=== PATIENT | male | born 1960 | race Caucasian/White ===

== ENCOUNTER 2018-12-29 09:00 | Outpatient (RCR) | payer OTHER, SELFPAY ==
--- NOTE | 2018-12-29 10:08 | BH.COMM ---
Communication Note - Communication with Client Communication Note: Completed intake paperwork with client today. Completed the Tillman Suicide Severity Scale (CSSR-S) Lifetime Recent to assess for suicidal risk. Client denies any history of suicidal ideations or attempts. 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 Client denies any current suicidal thoughts, intention and plan. Per the CSSR-S client has a low risk for suicide. Client feels able to maintain safety, agreeable to call 911 or go to nearest emergency room if feels unable to maintain safety.
--- NOTE | 2018-12-29 10:18 | BH.SGPN.GN ---
Behaviors/Verbalizations/Mental Status: []Client alert and oriented, neatly dressed and groomed. Eye contact good. Motor activity appropriate. Speech within normal limits. Affect congruent, mood euthymic. Thoughts linear, logical, no signs of hallucinations or delusions. Client Response/Progress/Benefit: []Client active participant AEB client providing input throughout session, engaged in group activity and listened attentively to peers. Client reported ?if you can adapt to changes in life you become stronger.? Client stated resilience is needed to maintain mental stability and lack of resilience can cause a person to be closed-minded. Group discussed connections between activity and barriers/supports to development of a resilient lifestyle. Client agreed with peers that one can learn to become more resilient throughout life. Client benefitted from brainstorming benefits of being resilient which included: stronger than before, improving ability to cope, builds confidence and self-esteem, and being open-minded. Client?s first day in IOP. Will continue IOP tx to prevent decompensation and improve daily functioning.
--- NOTE | 2018-12-29 11:20 | BH.SGPN.GN ---
Behaviors/Verbalizations/Mental Status: []Client alert and oriented, casually dressed and groomed. Eye contact good. Motor activity appropriate. Speech within normal limits. Affect congruent, mood euthymic. Thoughts linear, logical, no signs of hallucinations or delusions. Client Response/Progress/Benefit: []Client responded well to session, providing input during discussion and listening attentively to peers. Client engaged in the group activity as shown by client working cooperatively with others and providing ideas to group. Client stated the group have hope and being optimistic was integral for the group to be successful during activity. Worked with group to identify how the group utilized all of the resiliency factors to help them overcome a challenge that initially seemed impossible. Client reported he wants to work on the resiliency factor of accepting that change is a part of living. Client seemed to benefit from identifying what resiliency factor he wants to improve to increase personal resilience. Client to continue IOP stabilize moods, increase healthy coping skills and prevent decompensation. Narrative Note: []
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
--- NOTE | 2018-12-29 13:48 | BH.DR.ITP ---
Initial Treatment Plan - Patient Information Visit Information: ADMISSION DATE: EXPECTED LOS: 4-6 weeks - Problems/Symptoms Problem #1:: Depression Symptom:: sadness, isolation, decreased concentration, hopelessness Problem #2:: mixed episode Symptom:: Irritability, impulsivity, decreased need for sleep
--- NOTE | 2018-12-29 14:46 | BH.NOTE ---
BH: Inpatient Note - Notes Behavioral Health Inpatient Note: Per written order from Dr. Villar, the following prescription was called into [facility] pharmacy in [place], [place]: Latuda 20mg PO daily at dinner with food Written lab requisition for CMP, TSH, and Vitamin D provided to client. List of in-network Neurologists ([facility]) provided to client at the request of Dr. Villar. Elvira Mccormack, MSN, RN
--- NOTE | 2018-12-29 15:39 | BH.COMM ---
Communication Note - Communication with Client Communication Note: Due to starting new medications and change in personality over the past year psychiatrist recommended that all guns be removed from the home. Pt was agreeable. SOFÍA signed for . Called and informed and she is agreeable to help him follow through with this. Pt did not verbalize any desire to hurt self or others.
--- NOTE | 2018-12-30 09:10 | BH.SGPN.GN ---
Behaviors/Verbalizations/Mental Status: [] Eye contact is good. Motor activity is appropriate. Appearance is casual. Speech is Appropriate. Mood is euthymic. Affect is full. Thoughts are linear and logical. No evidence of psychosis. Reviewed daily check in sheet and no reports of suicidal ideations or intent Client Response/Progress/Benefit: [] Pt participated at times during the group discussion. Emotion for today is anxious. Discussed his first day in IOP yesterday which he described as helpful. Reports being motivated and encouraged to work on his mental health. States I want to make changes. Check-in was brief. Attentive during rest of group. No progress noted. Benefited from group support and encouragement. Will continue in IOP to prevent decompensation, stabilize mood, and increase healthy coping skills and communication. Narrative Note: []
--- NOTE | 2018-12-30 10:10 | BH.SGPN.GN ---
Behaviors/Verbalizations/Mental Status: []Client alert and oriented, casually dressed and groomed. Eye contact good. Motor activity appropriate. Speech within normal limits. Affect full, mood euthymic. Thoughts linear, logical, no signs of hallucinations or delusions. Client Response/Progress/Benefit: []Client active participant as shown by client?s contribution to discussion and engagement in activity. Client agreed with peers that self-care is important because ?there?s nothing to give without self-care.? Client shared self-care is not selfish because it is healthy. Client participated in the discussion of the common myths about self-care including self-care is selfish, self-indulgent, take too much time, and always fun. Group gave examples of self-care activities such as setting boundaries, taking medication, going to therapy, and admitting one needs help. Client engaged in activity and able to connect how sometimes to make self-care a priority, a person must set boundaries in other areas of their lives. Client seemed to benefit from increased awareness of the importance of self-care. Client?s second day of IOP. Will continue tx to prevent decompensation in functioning and improve emotional regulation skills.
--- NOTE | 2018-12-30 11:15 | BH.SGPN.GN ---
Behaviors/Verbalizations/Mental Status: [Client alert and oriented, casually dressed and appropriately groomed. Eye contact good, at times intense. Motor activity appropriate. Speech within normal limits, at times rambling. Affect congruent, mood anxious, depressed. Thoughts linear, logical, no signs of hallucinations or delusions. ] Client Response/Progress/Benefit: [Pt responded well to session, actively listening and willing participant in both discussion and worksheet activity. Worked with the group to further process the activity and discussion on the importance of self-care in management mental health and preventing burnout. Asking questions related to topic throughout. Pt engaged in the discussion and self-assessment of the different areas of self-care. Pt reports connecting with discussion on the mental health effects of not making self-care a priority, though struggled to identify areas in which he would benefit from improving his own personal self-care. With assistance from therapist pt set a goal to improve in the area of emotion self-care by continuing to use self-talk and taking breaks before responding to prevent becoming angry. Pt appeared to benefit from increasing awareness of how he can improve self-care balance. Pt progress noted in ability to identify impact current lack of self-care activities has had on mental health and relationships with others. Recommended continued IOP to continue to continue to promote gains, improve self-care skills, and prevent decompensation.] Narrative Note: []
--- NOTE | 2018-12-31 10:18 | BH.SGPN.GN ---
Behaviors/Verbalizations/Mental Status: [Client alert and oriented, casual dress, hygiene tended to. Eye contact good. Motor activity appropriate. Speech within normal limits. Affect congruent, mood euthymic and anxious. Thoughts linear, logical, no signs of hallucinations or delusions. ] Client Response/Progress/Benefit: [Pt receptive of session, engaged throughout. He did well to work with the group to reflect on the quote and discussed the ways in which perspective can impact mental health and ability to make personal progress in life. Pt indicated that ?we look for what we want to see, but are we seeing things that make our emotions better??. Expressed that a positive perspective can reduce use negative thoughts and improve motivation. He noted that challenging his perspective has resulted in improving mental health since beginning iop. Pt did well to engage in the challenge activity and was an active participant in identifying how perspective impacted ability to complete the task at hand. Pt appeared to benefit from increasing understanding of mental health benefits of a positive perspective and potential consequences to progress when perspective is negative or pessimistic. Pt progress noted in ability to better manage stressors and report of decreased depression. Recommended continued IOP tx to promote continued progress, further promote application of skills learned, and prevent decompensation.] Narrative Note: []
--- NOTE | 2018-12-31 11:15 | BH.SGPN.GN ---
Behaviors/Verbalizations/Mental Status: []Client alert and oriented, casually dressed and groomed. Eye contact good. Motor activity appropriate. Speech within normal limits, but limited insight to social cues when sharing. Affect full, mood anxious. Thought blocking present at times, no signs of hallucinations or delusions. Client Response/Progress/Benefit: []Client responded well to session, attentive and contributing to discussion, but struggling to continuous pickling line pickler on social cues. Group discussed the mental health benefits of recognizing strengths which included; improved self-esteem, better relationships, and increased resilience. Group identified the barriers that have prevented them from acknowledging their strengths and successes. These barriers included; negative thoughts, self-depreciation, mistaken beliefs, and not feeling allowed to acknowledge strengths. Group identified strategies to overcome barriers that prevent them from seeing strengths. These strategies included; keeping track of progress, practicing self-compassion, and challenging distortions. Client able to identify personal strengths he possesses which included; self-control, humor, and persistence. Client reported that he often uses humor as an escape at times. Appeared to benefit from recognizing personal strengths and identifying strategies to overcome barriers. Will continue IOP tx to prevent decompensation of depressive symptoms and to increase healthy coping skills.
--- NOTE | 2018-12-31 11:59 | BH.MTP_ITS ---
Master Treatment Plan - Patient Information Program Physician:: Dr. Sveta Vasquez Primary Therapist:: Manfred Kemp - Psychiatric Diagnoses Psychiatric Diagnoses:: Bipolar, most recent episode mixed, moderate F31.9 Diagnosis Code(s):: f31.9 - Estimated LOS Estimated LOS (in weeks):: 6 Problem/Goal #1 - Problem/Goal #1 Stated Goal:: Client will reduce depressive symptoms, feelings of worthlessness, isolation, and anhedonia as evidenced by self-report and DSM 5 cross-cutting depression scales. Description of Barriers: Low emotional intelligence, unhealthy coping strategies, relationship conflicts, poor communication skills. Functional Impact: Isolates and avoidance others and conflict. Impacting marriage. - Objectives Objective #1 Stated Objective: Client will identify 2-3 coping strategies to use when feeling overwhelmed. Interventions: Through group and individual counseling will help client process triggers to increased symptoms, and then identify ways to manage these feelings and thoughts. Therapist will also work on helping client feel less isolated and understand better behaviors and escalating tendencies. Discharge Criteria: Client will have met this goal when can safely use 1-2 coping strategies when feeling overwhelmed with depressive symptoms. Target Date: 02/11/19 Review Date: 01/28/19 Objective #2 Stated Objective: Identify at least 2-3 negative self-talk messages used to reinforce feelings of hopelessness and replace thoughts with positive messages. Interventions: Through individual and group counseling will help client identify distorted, negative beliefs about self and replace with more realistic, affirmative messages. Discharge Criteria: Client will have achieved this goal when can verbalize at least 2 negative self-talk messages and effectively replace those thoughts with affirmative messages. Target Date: 02/11/19 Review Date: 01/28/19 Problem/Goal #2 - Problem/Goal #2 Stated Goal:: Client will increase mood stability and decrease anger/irritability and impulsivity as evidenced by reduction in DSM cross- cutting scales. Description of Barriers: Low emotional intelligence, unhealthy coping strategies, relationship conflicts, poor communication skills. Functional Impact: impacting functioning at home and work. - Objectives Objective #1 Stated Objective: Client will identify 2-3 triggers and 2-3 new ways to navigate stressful situations rather than becoming irrational and losing temper. Interventions: Through individual and group counseling pt will learn more responsible and effective ways to manage emotions in stressful situations, and feel more confident in himself. Discharge Criteria: Client will have met this goal when he is able to describe less than 2 irrational reactions in a week, and at least 2 new ways to handle these stressful situations. Target Date: 02/11/19 Review Date: 01/28/19 Objective #2 Stated Objective: Client will learn and implement 2-3 effective communication and conflcit resolution skills to empower client to communicate thoughts and feelings. Interventions: Through group and individual counseling client will learn more effective communication skills and will provide homework for client to practice communication skills outside of sessions. Discharge Criteria: When he is able to identify and utilize effective and healthy conflcit resolution and communication skills. Target Date: 02/11/19 Review Date: 01/28/19
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
--- NOTE | 2018-12-31 15:08 | BH.NOTE ---
BH: Inpatient Note - Notes Behavioral Health Inpatient Note: This ELECTRICAL MAINTENANCE SUPERVISOR was informed that client was unable to obtain his prescription for Latuda at [facility] in [place], but was unsure why it was not covered by his insurance. Pharmacist at [facility] explained that a prior authorization would need to be done with [facility] ([phone]). Armhole Baster Jumpbasting at [facility] explained that Latuda would not be covered as it part of a step therapy and the client would have to try and fail Abilify first. This ELECTRICAL MAINTENANCE SUPERVISOR called and discussed above with Dr. Villra, who explained that she did not want to trail client on Abilify given the risk of increased impulsivity, gambling, and irritability. Client has also unsuccessfully trailed multiple antidepressants. A second Nuclear Physicist at [facility] provided the fax number for the Pharmacy Department ([phone]) at [facility], to which a clinical explanation of the rationale of Dr. Villar as noted above was sent. Will await a response from [facility] and inform client, pharmacy, and physician of results. Elvira Mccormack, MSN, RN
--- NOTE | 2019-01-04 09:02 | BH.SGPN.GN ---
Behaviors/Verbalizations/Mental Status: []Client alert and oriented, neatly dressed and groomed. Eye contact good. Motor activity appropriate. Speech within normal limits. Affect incongruent-smiling but reporting anxiety, mood anxious. Thoughts linear, logical, no signs of hallucinations or delusions. Reviewed client?s symptom tracker, no risk for suicidal ideation, plan, or intent as of 01/04/19. Client Response/Progress/Benefit: []Client responded well to session, receptive to feedback from peers. Client reports feeling ?fantastic? today despite his statements that he is nervous about an upcoming trip this weekend. Client shared he and his are going to [place] this weekend and he is worried about staying with their friends. Client reported last year a situation happened that is making client worried that the friends they are staying with ?will think I?m an idiot.? Client receptive to feedback from merchandising execution associate and peers on the benefits of open communication to combat distortions and assumptions. Client willing to talk with his about his concerns and set boundaries should he need to. Client?s mental health win today is that ?group is clicking? and per client?s report, he is learning a lot about his mental health and how to better manage it. Appeared to benefit from processing his stressor and coming up with possible solutions. Will continue IOP tx as client continues to struggle with symptom management and challenging distortions.
--- NOTE | 2019-01-04 09:38 | BH.NOTE ---
BH: Inpatient Note - Notes Behavioral Health Inpatient Note: There has been no return call or communication from [facility] regarding approval or denial of medication prior authorization request submitted 12/31/18. Spoke with pharmacist at [facility], who attempted to process the Latuda prescription unsuccessfully, received the same message as previously. Contacted [facility] directly and retail customer service specialist, Carole, noted that the request was still being processed. However, she directed this copy writer to a form on the [facility] website to fill out and submit (step therapy/gender edit/general prior authorization enrollment form). Form completed and faxed directly to pharmacy dept ([phone]) and to Carole directly ([phone]), who states she will follow-up with the pharmacy department to ensure timely response to the request. Will await response from [facility], then notify physician, [facility], and client of results. Elvira Mccormack, MSN, RN
--- NOTE | 2019-01-04 10:10 | BH.SGPN.GN ---
Behaviors/Verbalizations/Mental Status: [] Eye contact is good. Motor activity is appropriate. Appearance is casual. Speech is Appropriate. Mood is euthymic. Affect is full. Thoughts are linear and logical. No evidence of psychosis. Client Response/Progress/Benefit: [] Pt was an active participant in group activity and discussion. Provided insight on the quote of the day. Worked with peers to come up with a definition for coping which was how we deal with problems that we encounter. Group noted that coping skills can be healthy and unhealthy. Group worked together to identify unhealthy coping skills which included; substance abuse, avoiding, isolating, lashing out, self-harm, over-thinking, spending money, eating, and escaping reality through TV/games. Group began to identify ways to break the cycle of unhealthy coping skills which included; awareness, addressing issues, and learning healthy ways to cope. Pt was an active participant in his small group. Narrative Note: []
--- NOTE | 2019-01-04 11:15 | BH.SGPN.GN ---
Behaviors/Verbalizations/Mental Status: []Pt alert and oriented, eye contact good, casually dressed, motor activity appropriate, speech normal rate and tone, mood euthymic, congruent affect, thoughts linear and intact, no evidence of delusions or hallucinations. Client Response/Progress/Benefit: []Client listened attentively to peers and contributed thoughts during discussion. Client appeared to connect with the activity from second group and helped the group identify benefits of having a strong foundation of internal and external coping skills. Client helped the group discuss the different categories of coping skills and provided examples. Client agreed with peers it's important to use variety of coping skills. Client created a coping skills ?menu? from the five categories of coping skills. Client selected self-care, thought challenge, and mindfulness as coping skills to try. Client appeared to benefit from increasing his repertoire of healthy coping skills. Progress noted in client?s increased self-awareness of his maladaptive coping. Will continue IOP to stabilize moods, increase use of healthy coping skills and prevent decompensation. Narrative Note: []
--- NOTE | 2019-01-05 09:03 | BH.SGPN.GN ---
Behaviors/Verbalizations/Mental Status: [Eye contact is good. Motor activity is appropriate. Appearance is casual. Speech is Appropriate rate and tone. Mood is euthymic, expressed as relieved. Affect is congruent. Thoughts are linear and logical. No evidence of psychosis. Reviewed daily check in sheet and pt denies any active SI, plan, or intent. ] Client Response/Progress/Benefit: [Pt responded well to session, actively engaged throughout and providing supportive feedback. Pt indicated current emotion as ?relieved? and indicated that this was due to feeling comfortable enough in the group to bring up and process long ignored emotions. Pt went on to describe that his current stressor is his ongoing relationship tension with his son. He appeared to benefit from the support of the group environment and ability to process how this relationship discord is contributing to continued emotion dysregulation. Pt did well to identify current mental health wins which included openness to asking for help and continued engagement in group therapy, as well as ongoing application of emotion regulation skills. Pt recommended continued IOP tx to prevent decompensation, maintain mood stability, and promote ongoing application of healthy coping skills.] Narrative Note: []
--- NOTE | 2019-01-05 10:20 | BH.SGPN.GN ---
Behaviors/Verbalizations/Mental Status: []Client alert and oriented, casually dressed and groomed. Eye contact good. Motor activity appropriate. Speech within normal limits. Affect congruent. Mood euthymic. Thoughts linear, logical, no signs of hallucinations or delusions. Client Response/Progress/Benefit: []Client engaged participant AEB client providing input during discussion and listening attentively to others. Client reported he doesn't avoid conflict because he knows the negative impact avoidance has on him. Client identified shutting down as a barrier to effective conflict resolution. Group identified and discussed consequences of ignoring conflict. Attentive during psychoeducation on different conflict styles such as avoiding, accommodating, competing, and collaborative. The group began to review benefits and drawbacks to each style and client provided insight to discussion. Benefited as he was able to identify and define conflict as well as increase awareness of how conflict style impacts mental health. Progress noted with increased ability to challenge unhealthy thought patterns. Will continue IOP tx to prevent decompensation, challenge distorted thoughts and continue use of healthy coping skills. Narrative Note: []
--- NOTE | 2019-01-05 12:18 | BH.MDN ---
Multi-Disciplinary Note - Note 45-min Individual Time Started:: 11:15 Date: 01/05/19 Purpose of session/treatment goals addressed:: Reviewed current symptoms and progress in IOP. Eye Contact:: Good Motor Activity:: Appropriate Appearance:: Casual Speech:: Appropriate Mood:: Anxious Affect:: Congruent Thoughts:: Linear, Logical, No evidence of hallucinations/delusions noted Staff Interventions:: Utilized ND techniques to elicit change behaviors. Client Response:: Pt reports that he brought up his estranged relationship with his son during first group. Pt admits that he does not speak about this often as it triggers depression. Reports that he is unaware of what led to son requesting that his parents not speak to him. Pt reports this he got a letter from the son a year ago basically telling pt and that he did not want to talk with them and asked that they don't call, text, or stop over. Pt cannot identify trigger to this however beleives that this may be due parents being too intrusive and overwhelming. He gave some examples of what he was speaking about. Admits to being very instrusive with most relationships in his life and gave examples of helping w/o the other asking. After talking has insight that he has urge to help others or be thier father-figure or savior. Believes this may be due to not having a father figure in his life. Insight that being too helpful or intrusive could cause the other person to feel uncomfortable and ultimately lead to distancing themselves from him. Able to see this pattern in past relationships. Agreed to stop trying to help others and focus on helping himself and marriage. No benefits from past attempts. In the end it did not help his self-esteem and caused the relationship to end. Risks/Concerns:: none noted. Progress Toward Goals/Plan:: Progress noted. Insight that urge to help others could have lead to conflicts in relationships in the past. Self-esteem and overall mood appear to be dependent on others (i.e. his ability to help others). Due to son stopping contact and other co-worker whom he was helping requesting no contact as well this perhaps impacted his overall self-esteem and led to recent decompensation. Increased insight. Will continue in IOP to prevent decompensation and stablize mood. Time Stopped:: 11:57
--- NOTE | 2019-01-05 14:46 | BH.NOTE ---
BH: Inpatient Note - Notes Behavioral Health Inpatient Note: Received fax from [facility] stating that a request for plan coverage of Latuda has been approved by a licensed clinical pharmacist valid through 01/04/19-01/05/20. Called [facility] pharmacy in [place], [place], and requested the pharmacist re-submit the claim for Latuda to [facility] to ensure coverage and check the copay for client; [facility] notes the copay still comes back at over $1000. Called [facility] and spoke with customer operations specialist, Maryam Silvestre (reference #[id number]). Maryam explains, after speaking with pharmacy department, that client has individual deductible of $6650 ($[id number] family), which also applies to medications/prescriptions, and has only met $161 toward that total. Explored financial options, including Latuda Copay Savings Card and coupon options available through [email or web address], none of which are going to provide adequate assistance for client. Dr. Villar informed of above, and will plan to re-evaluate client next week. Client reports increased stability of moods and less impulsivity since discontinuing Zoloft and participating in IOP. Will continue to follow case and assist. Elvira Mccormack, MSN, RN
--- NOTE | 2019-01-06 09:10 | BH.SGPN.GN ---
Behaviors/Verbalizations/Mental Status: [] Eye contact is good. Motor activity is appropriate. Appearance is neat. Speech is Appropriate. Mood is depressed/irritable. Affect is flat. Thoughts are linear and logical. No evidence of psychosis. Reviewed daily check in sheet and no reports of suicidal ideations or intent. Client Response/Progress/Benefit: [] Pt participated at times during the group discussion. Pt shared that he had a bad evening last night. Reports that communication with his has improved however there was some conflict last night. States that he continues to ruminate on this today which is impacting his mood. Check-in was short and it appeared as if he did not want to elaborate much more. Notes that looking back he managed his anger much better than he has in the past. Limited progress noted. Benefited from group support and encouragement. Will continue in IOP to prevent decompensation, increase coping skills, and stablize mood. Narrative Note: []
--- NOTE | 2019-01-06 10:10 | BH.SGPN.GN ---
Behaviors/Verbalizations/Mental Status: []Client alert and oriented, neatly dressed and groomed. Eye contact good. Motor activity appropriate. Speech within normal limits. Affect congruent, mood euthymic. Thoughts linear, logical, no signs of hallucinations or delusions. Client Response/Progress/Benefit: []Client responded well to session, active and providing good insight to discussion. Client connected with the group topic of crisis and did well to work with group to define crisis. Client shared ?anything could be a crisis, it depends on the person.?? Client identified examples of potential crisis to include emergencies, hardships, and . Connected with discussion on how coping with external crisis by using unhealthy coping skills could lead to personal crisis. Group identified unhealthy coping skills to include; substances, isolation, impulsive behaviors, yelling, and pushing people away. Group identified warning signs for crisis which included; increased sleep, irritability, decreased appetite, and negative thoughts. Client completed the personal warning signs worksheet and identified crisis warning signs to include; isolation, loss of interest, and lack of motivation. Benefited from group by increasing awareness of crisis and personal warning signs. Progress noted as client reports increased self-awareness of symptoms and warning signs. Will continue IOP tx to promote the use of healthy emotional regulation skills and improve daily functioning. Narrative Note: []
--- NOTE | 2019-01-06 11:11 | BH.SGPN.GN ---
Behaviors/Verbalizations/Mental Status: []Client alert and oriented, casually dressed and groomed. Eye contact fair. Motor activity appropriate. Speech within normal limits. Affect congruent, mood dysthymic. Thoughts linear, logical, no signs of hallucinations or delusions. Client Response/Progress/Benefit: []Client responded well to session as evidenced by client listening attentively to others and sharing when prompted. Client identified his warning signs for crisis and gained further awareness of his earliest warning signs. Client recognized that awareness of these warning signs can prevent further crisis and help client utilize healthy coping skills to break the cycle. Client created a crisis action plan to help client better manage earliest warning signs for crisis. Client?s personal crisis prevention plan included coping skills such as: reaching out to supports, making manageable to-do lists, and thinking of calming memories. Client appeared to benefit from creating a crisis action plan and increasing self-awareness. Client to continue IOP level of care to stabilize moods, increase healthy coping, and prevent decompensation. Narrative Note: []
--- NOTE | 2019-01-11 09:00 | BH.SGPN.GN ---
Behaviors/Verbalizations/Mental Status: [] Eye contact is good. Motor activity is appropriate. Appearance is neat. Speech is Appropriate. Mood is anxious. Affect is congruent. Thoughts are linear and logical. No evidence of psychosis. Reviewed daily check in sheet and no reports of suicidal ideations or intent. Client Response/Progress/Benefit: [] Pt participated at times during the group discussion. Emotion for today is relief. He shared that he took a couple days off the spend a long weekend out of town. Noted stress and anxiety prior to the trip for several reasons which he briefly discussion. Notes that he managed his emotions well with no overwhelming emotions of negative thoughts. Active and engaged and not isolative. Returned to work today stating that he got to work 2 hours early at 2:30am to get organized. Appears work may be more stressful and anxiety producing than previously mentioned. Progress noted. Benefited from group feedback, support, and encouragement. Will continue in IOP to prevent decompensation, stabilize emotions, and increase healthy coping skills. Narrative Note: []
--- NOTE | 2019-01-11 10:08 | BH.SGPN.GN ---
Behaviors/Verbalizations/Mental Status: []Client alert and oriented, neatly dressed and groomed. Eye contact good. Motor activity appropriate. Speech within normal limits. Affect congruent, mood euthymic. Thoughts linear, logical, no signs of hallucinations or delusions. Client Response/Progress/Benefit: []Client was an active participant and engaged in discussion. Client appeared to connect with the quote and shared ?absolutely we need to be proud of every step.? Group defined goals and identified the benefits of developing goals which included; improving self-confidence, gaining a sense of accomplishment, gaining a sense of purpose, increased motivated/productivity, and better mental health. Group also identified barriers to setting and accomplishing goals which include; fear, unrealistic expectations, lack of follow through, and not knowing where to start. ?We have to be the motivating force that drives our goals.? Attentive during education on developing SMART goals. Benefited from increasing awareness of goal-setting methods and practicing goal setting. Progress noted as shown by client?s report of increased recognition of his mental health symptoms and barriers. Will continue IOP tx as client continues to struggle with negative self-talk that reinforces depression. Narrative Note: []
--- NOTE | 2019-01-11 11:13 | BH.SGPN.GN ---
Behaviors/Verbalizations/Mental Status: [Client alert and oriented, casually dressed and appropriately groomed. Eye contact intense. Motor activity appropriate. Speech within normal limits, at times rambling. Affect congruent, mood anxious and euthymic. Thoughts linear, logical, no signs of hallucinations or delusions. ] Client Response/Progress/Benefit: [Pt attentive throughout and actively participated in discussion regarding SMART goal setting. Pt engaged in creating own mental health SMART goal; however, appeared to experience difficulties in transferring skills learned to his own mental health SMART goal. With assistance pt was able to adjust identified goal to meet SMART criteria. Identified goal as: Decrease racing thoughts by setting aside 10 minutes to engage in relaxation daily. Pt reported this goal will benefit him by reducing rumination and anxiety. Pt identified potential barriers to accomplishing goal to include: Lack of experience. Pt expressed ?I don?t think I?ll have any other barriers?. Pt reported he will overcome this barrier by ?practicing each day?. Pt seemed to benefit from identifying a SMART goal and coming up with strategies to overcome potential barriers. Progress noted in pt ability to work with staff to create a small relevant goal aimed at improving mental health. Pt to continue IOP to increase healthy coping skills, improve healthy communication and boundaries, and prevent decompensation.] Narrative Note: []
--- NOTE | 2019-01-12 09:10 | BH.SGPN.GN ---
Behaviors/Verbalizations/Mental Status: [] Eye contact is good. Motor activity is appropriate. Appearance is casual. Speech is Appropriate. Mood is anxious. Affect is congruent. Thoughts are linear and logical. No evidence of psychosis. Reviewed daily check in sheet and no reports of suicidal ideations or intent. Client Response/Progress/Benefit: [] Pt participated at times during group discussion. Emotion for today is surprised. Shared that he has been putting a great deal of effort in anger mgmt at work. He discussed how frustration, feeling wronged, and feeling as if others don't care at work has impacted his overall mental health. He discussed today how he focused on his goals and did not make any passive-aggressive remarks about other's work ethics. He then reviewed how this can be helpful for himself as well as those around him. He notes that he was surprised he was able to do this. Progress noted. Will continue in IOP to stabilize mood, prevent decompensation, and decrease isolative behaviors. Narrative Note: []
--- NOTE | 2019-01-12 10:20 | BH.SGPN.GN ---
Behaviors/Verbalizations/Mental Status: []Eye contact good. Motor activity is appropriate. Appearance is casual. Speech is appropriate rate and tone. Mood is dysthymic. Affect is congruent with mood. Thoughts are linear and logical. No evidence of psychosis. Client Response/Progress/Benefit: []Client was an active participant in group activity and discussion, providing insight throughout. Client connected with the topic and worked with group to identify common internal barriers that keep people stuck. Client identified his current reality is starting to gain some insight into his mental health problems, but continues to struggle with knowing what to do to help him cope and overcome challenges. Client shared his realistic, desired reality would be client having increased awareness and understanding of his mental health, feeling more stable and being more calm/relaxed. Benefited from group as client was able to identify current and desired mental health state. Will continue IOP to prevent decompensation, increase utilization of healthy coping skills, and challenge distorted thoughts. Narrative Note: []
--- NOTE | 2019-01-12 14:06 | PCM.BH.PN_ITS ---
Progress Note Progress Note: History of Present Illness/Interim History: [] Patient is a 58-year-old male with a history of new onset diagnosed bipolar disorder most recent episode mixed, moderate without psychosis. Rule out medication induced mixed episode. The patient is seen in follow-up at the [facility] program. I last saw him 2 weeks ago. At that time we discussed discontinuing his Zoloft as I felt that the medication had possibly caused him to have a bipolar mixed episode. I decided to treat him with Latuda at that time but the medication was too expensive so the patient was never able to fill the Latuda. His symptoms remain relatively unchanged. He does feel much more optimistic about the future and he feels he will get better. He is enjoying the IOP program and feels he is learning valuable skills to help cope with his mood disorder. His sleep remains somewhat decreased at about 4 to 5 hours a night with no fatigue the next day. His mood remains unstable with irritability alternating with depression. His other symptoms included high energy at times and impulsive spending. He also had some anger issues at work. He also had accusations of becoming too close to a 21-year-old female at work. He remains depressed but again feels much more optimistic. He denies any thoughts of suicide, or self-harm. Denies any homicidal thoughts. Current Psychiatric Medications: [Patient discontinued his Zoloft 8 days ago. He is on no other psychiatric medications or other medications.] Labs: His renal panel was within normal limits. His creatinine was 1.19 which is within the normal range of this lab (high limit of normal being 1.3). TSH was also normal. Mental Status Examination: [] Is a 58-year-old male who appears normal for stated age. He is casually dressed and groomed with good hygiene. He is cooperative and pleasant during the interview. Eye contact is good today. Speech is normal rate and rhythm with no pressure. He has a mild Amadeo increased speech latency but much less than at last appointment. Mood is still depressed but euthymic appearing at present. Affect is full. Thought processes organized and goal-directed. Thought content: No evidence of hallucinations, delusions, suicidal or homicidal ideation. Judgment limited but improving. Insight limited. Impulsivity remains moderate. Diagnoses: [] [place] I: [] Bipolar disorder most recent episode mixed, moderate. Rule out medication induced mixed episode. [place] II: [] Deferred [place] III: [Possible mild cognitive disorder (referred to neurology) [place] IV:[]] Primary support?marital issues Plan: [] We will continue the IOP program as the support, education, structure, individual group therapy will hopefully prevent worsening of the patient's condition which might require hospitalization. He felt safe during the interview today and if he it does not feel safe at any time he will tell us or go to the emergency room. The risks, options and possible complications of the medications were discussed with the patient and he understands and accepts these. In particular the risk of kidney damage and other side effects of lithium were discussed with the patient and he understands and accepts these. His labs were reviewed. The patient will continue lithium carbonate ER at 300 mg 1 p.o. twice daily. In addition vitamin D2 was started for low vitamin D 50,000 IU p.o. weekly for 3 months. I will see the patient in 2 weeks. Since he is only been off the Zoloft 8 days long-acting metabolite of Zoloft could still be around. I would like to keep the lithium at the lowest dose that will maintain him and help him to get more stable and less impulsive. He should also avoid antidepressants.
--- NOTE | 2019-01-13 09:06 | BH.SGPN.GN ---
Behaviors/Verbalizations/Mental Status: [Client alert and oriented, casual dress, hygiene appropriate. Eye contact good. Motor activity appropriate. Speech within normal limits. Affect congruent, mood euthymic and agitated. Thoughts linear, logical, no signs of hallucinations or delusions. Reviewed client?s symptom tracker, no signs of suicidal ideation, plan, or intent as of today. ] Client Response/Progress/Benefit: [Pt was an active participant in group discussion, providing input and openly processing with the group. Emotion for today is frustrated but enlightened. Pt indicated that he has been struggling with ruminating on a ?setback? that occurred the previous night. Pt indicated that he had struggled with managing his stress and irritability levels while trying to get the family dog to listen when going to bed. Able to recognize the impact of being tired on his ability to regulate emotions. Reports mental health win as identifying his mood beginning to change and taking a deep breath to help calm himself. Additional mental health win reported as applying positive self-talk and thought challenging strategies this morning to prevent previous night frustrations from impacting mood today. Progress noted in application of emotion regulation skills outside of treatment environment. Continued IOP tx recommended to continue to improve emotion regulation skills, decrease irritability, and prevent decompensation. ] Narrative Note: []
--- NOTE | 2019-01-13 10:12 | BH.SGPN.GN ---
Behaviors/Verbalizations/Mental Status: []Client alert and oriented, neatly dressed and groomed. Eye contact good. Motor activity appropriate. Speech within normal limits. Affect congruent, mood anxious. Thoughts linear, logical, no signs of hallucinations or delusions. Client Response/Progress/Benefit: []Client was an active participant during session, connecting to the quote and peers. Group discussed the MH benefits to having open and clear communication with support and providers. Client reported effective communication positivity impacts one?s mental health and relationships. Client reported he was struggling to understand some of the barriers to communication. Group discussed the barriers that tend to impact clear and open communication which include: fear, negative thinking, culture, unregulated emotions, poor body-language, and tone of voice. Client was attentive during psycho-education on communications styles (aggressive, passive, passive-aggressive, and assertive). Also contributed to the pros and cons to each communication style. Client seemed to benefit from increased insight on how the way he communicates impacts her mental health. Progress noted in client?s report of increased acceptance of his mental health, however, client struggles with identifying healthy coping skills he uses outside of IOP. Will continue IOP tx to promote emotional regulation and improve interpersonal relationship skills. Narrative Note: []
--- NOTE | 2019-01-13 11:16 | BH.SGPN.GN ---
Behaviors/Verbalizations/Mental Status: []Client alert and oriented, neatly dressed and groomed. Eye contact good. Motor activity appropriate. Speech within normal limits. Affect congruent, mood anxious. Thoughts linear, logical, no signs of hallucinations or delusions. Client Response/Progress/Benefit: []Client active participant AEB his attentiveness during discussion and engagement in activity. Client had a hard time identifying which communication style he uses and reported he was having a hard time understanding the pros and cons of the different communication styles. With feedback from the group, client was able to recognize how the different styles impact mental health and relationships. Client was attentive and contributing during the activity. Client able to identify strategies that can increase effective communication including the JF strategy. Client left before he could identify his personal communication goal. Client seemed to benefit from increased insight into how one?s communication style impacts mental health and relationships. Client progressing as shown by client?s report of increased self-awareness. However, client appears to struggle with identifying coping skills he uses outside of the group setting. Will continue IOP tx to promote mood stability and increase interpersonal relationship skills. Narrative Note: []
--- NOTE | 2019-01-18 09:00 | BH.SGPN.GN ---
Behaviors/Verbalizations/Mental Status: [] Eye contact is good. Motor activity is appropriate. Appearance is disheveled. Speech is Appropriate. Mood is euthymic. Affect is full. Thoughts are linear and logical. No evidence of psychosis. Reviewed daily check in sheet and no reports of suicidal ideations or intent. Client Response/Progress/Benefit: [] Pt participated at times during the group discussion. Emotion for today is excited. Shared some recent stressors and discussed his weekend. Notes that his weekend was unexpectedly good. Rest of his sharing was vague and superficial. Benefited from group support and encouragement. Progress noted per pt report. He is limited in what he shared in group. While relationship conflicts are noted in indiv sessions he does not share this in group setting. Will continue in IOP to stabilize mood, increase health anger mgmt skills, and decrease isolative behaviors. Narrative Note: []
--- NOTE | 2019-01-18 10:02 | BH.SGPN.GN ---
Behaviors/Verbalizations/Mental Status: []Client alert and oriented, neatly dressed and groomed. Eye contact good. Motor activity appropriate. Speech within normal limits. Affect constricted, mood euthymic. Thoughts linear, logical, no signs of hallucinations or delusions. However, at times client struggles with finishing his train of thought. Client Response/Progress/Benefit: []Client was attentive and participating during discussion. Client participated in discussion of the quote and shared belief that people do not always have the choice of their circumstances, ?but you can either be pissed or do something about it.? The group worked together to identify barriers that keep one from choosing a new and healthier path to mental wellness which included; unhealthy habits, fear of failure, procrastination, stigma, lack of supports, and negative thinking. Attentive during psychoeducation on the chapters of life. Client was attentive during discussion, providing insight to distinguishing factors in each chapter. Client shared to choose a different path, one needs awareness and opposite action. Client reported he was not sure what made him want to change his mental health path. Benefited from increased awareness and education on barriers to choosing new wellness paths and chapters of life. Progress is difficult to measure in a group setting as client often declines to share about his personal goals during group. Will continue IOP tx to promote emotional regulation and increase self-awareness. Narrative Note: []
--- NOTE | 2019-01-18 11:10 | BH.SGPN.GN ---
Behaviors/Verbalizations/Mental Status: []Client alert and oriented, casually dressed and groomed. Eye contact good. Motor activity appropriate. Speech within normal limits. Affect congruent to topic being discussed, mood euthymic. Thoughts linear, logical, no signs of hallucinations or delusions. Client Response/Progress/Benefit: []Client was an active participant in group discussion, contributing to discussion and listened attentively to others. Completed worksheet and willing to share with the group. Client reported believes he is currently in chapter 2? as client shared he is starting to gain awareness of his mental health problems. Client shared to get to the next chapter he will focus on continuing to gain awareness of his mental health symptoms, warning signs, and what skills can help manage his symptoms. Benefited from group by identifying thoughts and behaviors that have kept him stuck and developing plan to promote progress. Will continue in IOP to continue to use healthy coping skills and prevent decompensation. Narrative Note: []
--- NOTE | 2019-01-19 08:41 | PCM.BH.PN ---
Progress Note Progress Note: Discussed with the staff here at the IOP program Re:: Juan R Burleson. Patient has been behaving okay at the IOP program and seems to be benefiting. 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 The staff will discuss this with Juan R. His states that he is still not behaving normally at home. She states that his hygiene is poor but we have not observed that at the IOP program. Since he is tolerating the lithium carbonate at 300 mg p.o. twice daily and since he has been off the Zoloft now for 2 weeks I will increase the lithium dose to lithium carbonate ER 900 mg p.o. nightly. I will see the patient in 1 week to see how he is doing on this and will get a blood level and at that time. Staff let me know if anything in Juan R situation changes or his condition worsens.
--- NOTE | 2019-01-19 09:06 | BH.SGPN.GN ---
Behaviors/Verbalizations/Mental Status: [Client alert and oriented, casual dress, hygiene tended to. Eye contact good. Motor activity appropriate. Speech within normal limits. Affect congruent, mood euthymic and positive. Thoughts linear, logical, no signs of hallucinations or delusions. Reviewed client?s symptom tracker, no signs of suicidal ideation, plan, or intent as of today.?] Client Response/Progress/Benefit: [Pt was an active participant in group discussion, providing input and openly processing with the group. Emotion for today is relieved as pt indicated successfully regulating his emotions while at work and preventing a frustrating moment from ruining his entire day. Pt did well to identify current mental health wins which included: applying calming skills of positive self-talk and walking away to manage anger. Additional win identified as advocating for himself and fellow coworkers to ensure an unsafe vehicle was fixed. Pt indicated that being able to process the frustrations of getting the vehicle looked at with the group added an additional sense of relief and pt noted benefitting from support of group. Indicated this had been his stressor but is no longer a major stressor after further processing. Progress noted in pt ability to actively apply self-soothing skills outside of tx environment. Continued IOP tx recommended to improve application of healthy coping skills, increase emotion regulation skills, and prevent decompensation.?] Narrative Note: []
--- NOTE | 2019-01-19 12:23 | BH.MDN_ITS ---
Multi-Disciplinary Note - Note 60-min Individual Time Started:: 10:20 Date: 01/19/19 Purpose of session/treatment goals addressed:: Reviewed current symptoms and progress in [facility]. Addressed treatment goals 1 and 2. Eye Contact:: Good Motor Activity:: Appropriate Appearance:: Disheveled Speech:: Appropriate Mood:: Euthymic Affect:: Full Thoughts:: Linear, Logical, No evidence of hallucinations/delusions noted Staff Interventions:: Utilized [place] techniques to elicit change behaviors. Open- ended questions to gauge progress and insight into current stressors and symptoms. Client Response:: Therapist recieved an email from pt's this AM stating that he has not showered or shaved in several days. She also reports that he has been isolating and appears to have low motivation. She also reports that he went off on a co-worker today. Feels that he may be minimizing symptoms to [facility] staff. Upon entering [facility] pt states that he feels relieved and discusses a situation at work this AM. 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 Feels that this is a safety issue and it has not been taken seriously. This AM it occured. Reports that he confronted the trailer mechanic. He reports that while he was loud at times he was not yelling stating I was proud of myself because I didn't yell and when I felt I was getting esculated I walked away. Reports that his vacuum metalizing supervisor came up to him after and reassurred him that he was in the right. Pt was assertive and stated that he was not going to drive the van in the AM anymore. He has been cutting back on driving tasks at work. Has a meeting with HR this afternoon regarding the van. Reports I spoke with my vacuum metalizing supervisor and she states I'm not in trouble for anything. Reports that since starting new medication he has noticed a decrease in impulsivity stating I'm not as edgy... I used to snap however I feel I'm taking a moment to think before I react. Uses today's events to state in the past it would have esculated at work. At home reports increased tensions and stress with . Long-standing conflict and verbal arguements. Reports that 50% of his stress and MH distress is related to his relationship with his . They have tried marriage counseling in the past with little improvement. Acknowledges lack of showering and shaving however reports that this is laziness as he gets up for work at 3am and when he gets home he eats and sleeps. Acknowledges avoiding and isolating however reports that he does this to avoid arguements and conflict. He presents concerns as not depression but rather poor communication and relationship with . Denies any overwhelming depression or anxiety. Denies any side effects of issues with medications. Risks/Concerns:: Denies any suicidal ideations, plan, or intent. Progress Toward Goals/Plan:: Pt notes progress in regards to anger mgmt and mood stability. Conflicting message from who indicates increased depression and anger. Hard to determine what is the truth however significant relationship conflict and poor communication between them. This is not an acute issue. Pt is avoiding and isolating at home to decrease arguements not due to depression. Call out to to further clarify her concerns and to set up a family session. Will continue in IOP to prevent decompensation and stabilize mood. Time Stopped:: 11:18
--- NOTE | 2019-01-20 09:05 | BH.SGPN.GN ---
Behaviors/Verbalizations/Mental Status: [] Eye contact is good. Motor activity is appropriate. Appearance is disheveled. Speech is Appropriate. Mood is anxious. Affect is congruent. Thoughts are linear and logical. No evidence of psychosis. Reviewed daily check in sheet and no reports of suicidal ideations or intent. Client Response/Progress/Benefit: [] Pt participated at times during the discussion. At first pt declined to share however later volunteered. Emotion for today is relieved. He shared that yesterday was a very emotional day at work. He reviewed the stressors involving a co-worker and his plan to reduce his hours. Ultimately he met with HR yesterday and made it clear he was not in trouble. 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 He shared that he was working 122 hours every two weeks which group discussed could impact his daily functioning and mood. Pt was able to identify the benefits to cutting back however reports that he takes a great deal of pride and satisfaction from work. Notes improved mood from yesterday. Benefited from group support, encouragement, and feedback. Progress noted as he appeared to have handled works stressor well and has cut back on hours which will benefit MH. Will continue in IOP level of care to stabilize mood and decrease unhealthy coping. Narrative Note: []
--- NOTE | 2019-01-20 10:10 | BH.SGPN.GN ---
Behaviors/Verbalizations/Mental Status: []Client alert and oriented, casually dressed and groomed. Eye contact fair. Motor activity appropriate. Speech within normal limits. Affect congruent to topic being discussed, mood euthymic. Thoughts linear, logical, no signs of hallucinations or delusions. Client Response/Progress/Benefit: []Client responded well to session, actively contributing to discussion. Client appeared to connect with the topic of fear of failure. Client reported failure has become habitual for me. Client stated since he was young he was made to believe he was a failure. Pt stated he now just expects failure. Group identified the impacts of fear of failure on mental health which included: not trying, depending too much on others, avoidance, self-sabotage, and increased mental health symptoms. Client reported fear of failure has impacted him because he has adopted the view point of why try, if going to fail anyway. Client seemed to benefit from increased awareness of how fear of failure can impact mental health. Client to continue IOP level of care to challenge distorted thoughts, increase generalization of healthy coping skills, and prevent decompensation. Narrative Note: []
--- NOTE | 2019-01-20 11:14 | BH.SGPN.GN ---
Behaviors/Verbalizations/Mental Status: [Client alert and oriented, casually dressed and well groomed. Eye contact good. Motor activity appropriate. Speech within normal limits. Affect congruent, mood euthymic, anxious. Thoughts linear, logical, no signs of hallucinations or delusions.] Client Response/Progress/Benefit: [Client responded well to session, active participant. Client further processed the group activity and shared that willingness to help each other and positive self-talk helped the group accomplish the activity. Client completed the fear of failure worksheet and reported that fear of failure is keeping him from setting boundaries and asking for help in the past. Client reported barriers for overcoming barriers fear of failure are lack of awareness and not knowing what to do to help with managing his emotions/irritability. Client shared he has been able to bounce back from setbacks in the past and the positive thing se has learned from past failures is that failure can make you more motivated to accept help in the future. Client selected a goal to help overcome fear of failure. Client appeared to benefit from gaining awareness and setting a goal to reduce fear of failure. Client showing progress in utilizing healthy coping to skills to manage irritability. Recommended continued IOP tx to prevent decompensation, decrease depression, and maintain gains. ] Narrative Note: []
== END 2019-01-20 23:59 ==
LOC: BHIOP 09:00
PROVIDERS: Referring Provider Psychiatry & Neurology Psychiatry; Visit Provider Psychiatry & Neurology Psychiatry
DX: F31.62 Bipolar disorder, current episode mixed, moderate (principal)
CPT/HCPCS: H0035; 90834; 90837; 90853

== ENCOUNTER 2019-01-25 09:00 | Outpatient (RCR) | payer OTHER, SELFPAY ==
--- NOTE | 2019-01-25 10:20 | BH.SGPN.GN ---
Behaviors/Verbalizations/Mental Status: []Client alert and oriented, casually dressed and groomed. Eye contact good. Motor activity appropriate. Speech within normal limits. Affect congruent to topic being discussed, mood euthymic. Thoughts linear, logical, no signs of hallucinations or delusions. Client Response/Progress/Benefit: []Pt engaged participant AEB pt providing input during discussion and appeared to listen attentively to peers. Pt appeared to connect with others comments about the negative impact of defining self by mental illness. Group identified social stigma can come from how the media, society, and upbringing portray mental illness. Group identified media and society portray mental health as: dangerous, negative, not good enough, abnormal, and romanticize it. Pt stated in his generation it was taught to not talk about anything, especially mental health. Pt stated being raised to believe mental health should stay quiet impacted him because he was in denial for a long-time about having mental illness. Pt stated he redacted all information on his FMLA forms for work because doesn't want anyone to know he is getting mental health treatment out of fear of judgement from others. Pt seemed to benefit from increased awareness of how societal and internal mental health stigma can impact functioning. Pt progressing with increased insight about own mental health and increased sharing of his own problems in group environment. Pt to continue IOP level of care to maintain gains, continue to identify and challenge negative thoughts and prevent decompensation. Narrative Note: []
--- NOTE | 2019-01-25 11:25 | BH.SGPN.GN ---
Behaviors/Verbalizations/Mental Status: [Client alert and oriented, casually dressed and appropriately groomed. Eye contact good, at times intense. Motor activity appropriate. Speech within normal limits. Affect congruent, mood euthymic. Thoughts linear, logical, no signs of hallucinations or delusions.] Client Response/Progress/Benefit: [Client responded well to session, engaged in activity, actively listening as well as providing input to discussion. At times client struggled with rambling or off-topic remarks, however did well to ask for clarification and was able to be redirected when concerns or questions were addressed. Group identified the benefits of addressing stigma which included; increased self-confidence, decreased feelings of shame or unworthiness, improved relationships, and increased willingness to ask for help. Client helped the group identify thoughts and behaviors people engage in that reinforce stigma. Client discussed that lack of personal awareness regarding his mental health led to denial and as result an inability to as for help until reaching point of crisis. Group brainstormed strategies to combat social and perceived stigma which included; changing personal language used, sharing positive mental health related media, communicating with supports, attending therapy, and increasing psychoeducation of self and others to reduce labeling behaviors. Client reported he will practice increasing consistent application of skills learned in group as a means for preventing setback that may led to self-comparison and reinforce self-stigma. Appeared to benefit from increasing awareness of impact of stigma on mental health and identifying strategies for beginning to combat self and social stigma related to mental health. Will continue IOP tx to increase consistent use of internal coping mechanisms, improve emotion regulation, and prevent decompensation.] Narrative Note: []
--- NOTE | 2019-01-25 11:35 | BH.MDN ---
Multi-Disciplinary Note - Note Family Time Started:: 09:00 Date: 01/25/19 Purpose of session/treatment goals addressed:: Family session with . Martial conflict identified as primary stressor. Eye Contact:: Good Motor Activity:: Appropriate Appearance:: Casual Speech:: Appropriate Mood:: Euthymic Affect:: Full Thoughts:: Linear, Logical, No evidence of hallucinations/delusions noted Staff Interventions:: Modeled and provided education on effective communication and conflict resolutions skills. Client Response:: Met with pt and his Melisa. reports that she has noticed a positive change in pt's ability to communicate effectively and increased anger mgmt skills. Both discussed what they see as a healthy relationship which included communication, honesty, support, trust, compassion, and listening. They both discussed areas of thier relationship which could be improved. They discussed small arguements which often lead to extended conflict. Pt gave an example which we processed and feels at times as if ignores him or does not listen to what he is saying. This along with other examples causes pt to beleive that does not care about him. Problem-solved and brought awareness to this. Pt admits that while his anger management has improved he still struggles. Limited insight on skills to use in the moment or warning signs to anger despite several IOP classess. Risks/Concerns:: None noted Progress Toward Goals/Plan:: Progress noted per pt and pt's since entering [facility]. Improved awareness, anger mgmt, and communication. Pt needs to continue to work on anger mgmt specifically identifying warning signs and developing healthy strategies. Plan is for pt to continue in IOP to maintain gains and improve healthy coping. Pt to set up aftercare this afternoon. Recommended continued marriage therapy. Time Stopped:: 09:55
--- NOTE | 2019-01-26 10:22 | BH.SGPN.GN ---
Behaviors/Verbalizations/Mental Status: []Client alert and oriented, neatly dressed and groomed. Eye contact good. Motor activity appropriate. Speech within normal limits. Affect flat, mood dysthymic. Thoughts linear, logical, no signs of hallucinations or delusions. Client Response/Progress/Benefit: []Client was an active participant as evidenced by taking notes and listening attentively to peers. The group discussed the quote and how the emotion anger is not good or bad, but one can respond to anger in healthy or harmful ways. Client worked with the group to define anger and its causes, as well as the internal and external impacts of anger. Group identified potential consequences of unhealthy management of anger to include: losing relationships, guilt, loss of job, increased stress, and worsening mental health symptoms. Client appeared to shut down during group discussion on one?s personal responses to anger and client declined to share his worksheet with the group. Benefited from group by increasing awareness of the negative impacts of unmanaged anger and underlying factors that contribute to his personal anger. Client will continue IOP tx to prevent decompensation, improve use of healthy coping skills, and reduce negative thoughts. Narrative Note: []
--- NOTE | 2019-01-26 12:02 | BH.MDN ---
Multi-Disciplinary Note - Note 45-min Individual Time Started:: 09:15 Date: 01/26/19 Purpose of session/treatment goals addressed:: Reviewed current symptoms and progress in IOP. Eye Contact:: Fair Motor Activity:: Restless Appearance:: Disheveled Speech:: Appropriate Mood:: Anxious, Irritable, Depressed Affect:: Congruent Thoughts:: Linear, Logical, No evidence of hallucinations/delusions noted Staff Interventions:: Utilized [place] techniques to elicit change behaviors. Challenged patient. Educated on skills to utilize when dwelling or ruminating. Gave anger warning signs worksheet. Client Response:: Pt shared that he made an appointment with a therapist and psychiatrist for his aftercare. I wanted to meet with patient to process the family session yesterday. It went well here however things did not go well last night. He started off the session stating that nothing is working... what is the point of coming here. Counselor challenged these statements as he had just remarked yesterday about the progress and the benefits of group. He then stated that perhaps he is too stubborn to make changes stating I'm not applying the skills. Despite dicussion yesterday about not problem-solving and allowing to vent he did the opposite. Also remarked that he is comfortable with negativity and not caring. He had also been ruminating on an event that happended yesterday in group stating someone got inside my head He did not want to discuss it much however he felt put down. Admits that he dwelled on this event for a majority of the day and allowed someone else's words to control his mood. Open to discussion on ways to better manage these types of events. Also verbalized contradicting views on his marriage from yesterday stating I'm not sure I want to be in this marriage He failed to mention any concerns yesterday or previous in counseling. Regression noted due to struggling yesterday with his emotions. We agreed to work on anger mgmt skills in the next week. Risks/Concerns:: none reported. Denies any SI, plan, or intent. Progress Toward Goals/Plan:: Progress is erratic. Pt has trouble identifying triggers to mood. Yesterday mood and marriage is improving whereas today mood and marriage is in crisis. Admits to not applying skills and being comfortable in negativity yet expects results. Views arguement and set-backs yesterday as a reason to quit IOP. Able to have insight about cognitive distortions and healthy coping when processing however not in the moment. Towards the end to the session less distress and more hopefull. WantS to continue with IOP. Plan is to continue with IOP to increase healthy coping skills and stablize mood. Time Stopped:: 10:00
--- NOTE | 2019-01-27 09:10 | BH.SGPN.GN ---
Behaviors/Verbalizations/Mental Status: [] Eye contact is good. Motor activity is appropriate. Appearance is disheveled. Speech is Appropriate. Mood is euthymic. Affect is congruent. Thoughts are linear and logical. No evidence of psychosis. Reviewed daily check in sheet and no reports of suicidal ideations or intent. Client Response/Progress/Benefit: [] Pt participated at times during the group discussion. Emotion for today is positive. Shared with the group that he completed some self-care yesterday as he went to a concert. He discussed the benefits of doing this for his MH which he states has been struggling. While the concert did remind him of his son with whom he is estranged overall it was a positive experience. He shared that he rarely completes any self-care for himself. He could not identify the reason for this. Group provided feedback on their obstacles to self-care as well the benefits of it. Pt was attentive and agreed that he needs to spend more time on this. Progress noted per pt report. Will continue in IOP to stabilize mood and increase healthy coping skills. Narrative Note: []
--- NOTE | 2019-01-27 10:20 | BH.SGPN.GN ---
Behaviors/Verbalizations/Mental Status: []Client alert and oriented, neatly dressed and groomed. Eye contact good. Motor activity appropriate. Speech within normal limits. Affect constricted, mood euthymic. Thoughts circular and struggling to articulate at times. no signs of hallucinations or delusions. Client Response/Progress/Benefit: []Client responded somewhat well to session, struggling at times to articulate, but connecting with the topic. Client reported he has put ?albrecht? up in life as a defense mechanism and he also puts up facades that ?everything is fine.? Participated in discussion of things that can keep people feeling trapped or stuck in life including; fixed thinking, lack of motivation, not letting people in, alcohol and drugs, lack support, and lack of confidence. Group discussed the connection between thoughts, emotions, and behaviors as well as how negative thinking can keep a person stuck. Client attentive during psychoeducation on maintenance cycles and reported connecting with maintenance cycles. Client able to identify negative thoughts that have reinforced depression and kept client feeling trapped. Client shared negative thoughts that have kept him stuck which included: ?I am a mistake, I don?t act right, I am worthless.? Appeared to benefit from gaining awareness of how negative thoughts reinforce mental health symptoms and keep people stuck. Client appears to be opening up more about his personal symptoms in group which is progress, but he continues to struggle with challenging negative thoughts. Narrative Note: []
--- NOTE | 2019-01-27 11:22 | BH.SGPN.GN ---
Behaviors/Verbalizations/Mental Status: []Client alert and oriented, casual in appearance. Eye contact good. Motor activity appropriate. Speech within normal limits. Affect constricted, mood dysthymic. Thoughts linear, logical, no signs of hallucinations or delusions. Client Response/Progress/Benefit: []Client responded well to session, providing feedback throughout session. Client appeared to connect with how negative thinking can keep a person stuck. Client identified a negative thought that has kept him stuck. Client?s thought was ?I am a burden.? Client stated in the past he has viewed this thought as realistic because he has been told that he was a burden before. Client recognized by viewing himself as a burden it makes him shut others out and gains a I don't care attitude. Pt able to connect how his negative thought maintains his depressed mood. Client appeared to benefit from practicing challenging negative thinking. Client progressing with increased sharing of emotions during group. Client to continue IOP to prevent decompensation, increase healthy coping, and challenge distorted thoughts. Narrative Note: []
--- NOTE | 2019-02-01 09:08 | BH.SGPN.GN ---
Behaviors/Verbalizations/Mental Status: [Client alert and oriented, casual dress, hygiene tended to. Eye contact good. Motor activity appropriate. Speech within normal limits. Affect congruent, mood euthymic. Thoughts linear, logical, no signs of hallucinations or delusions. Reviewed client?s symptom tracker, no signs of suicidal ideation, plan, or intent as of today. ] Client Response/Progress/Benefit: [Pt responded well to session, actively engaged throughout and providing positive contributions to group. Pt noted her emotion for the day is ?ecstatic? and indicated that this is due to continuing to work towards his tx goals and by focusing on the positives rather than his stressors only. Reports current wins as not letting an unexpected deadline at work negatively effect his mood the remainder of the day. Additional win noted as having a good day out with his over the weekend without any arguments. Pt appeared to benefit from supportive feedback and sharing his areas of progress with the group. Pt progress noted in increased application of emotion regulation skills and ability to recognize warning signs for agitation. Recommended continued IOP tx to continue to promote change behaviors and prevent decompensation while completing aftercare planning.] Narrative Note: []
--- NOTE | 2019-02-01 10:25 | BH.SGPN.GN ---
Behaviors/Verbalizations/Mental Status: []Client alert and oriented, neatly dressed and groomed. Eye contact good. Motor activity appropriate. Speech within normal limits. Affect congruent, mood euthymic. Thoughts logical, but struggling at times to articulate his thoughts. No signs of hallucinations or delusions. Client Response/Progress/Benefit: []Client receptive of session, attentive in discussion and activity. Client discussed the quote and shared a personal example of how managing his emotions effectively positively benefited client. Client helped group identify the consequences of not effectively managing emotions which included; strained relationships, guilt, suppressing emotions, increased negative thinking, resentment, blowing things out of proportion, and impulsive behaviors. Group identified barriers that impact one?s ability to communicate when emotions are high. These barriers included; acting on impulse, shutting down, physical aggression, assumptions, and misinterpretations. Client shared until recently he struggled to communicate his emotions with his . Client participated in the activity and did well to manage his emotions. Client appeared to benefit from increasing awareness of how emotions can impact communication and practicing in the moment coping skills. Progress noted as client reports decreased depressive symptoms and improved communication with his . Will discharge from [facility] tomorrow, but he can benefit from one more day to reinforce healthy coping skills. Narrative Note: []
--- NOTE | 2019-02-02 08:13 | BH.IGGP_ITS ---
Aftercare Plan - Demographics Treatment End Date:: 02/02/19 Psychiatrist:: Sveta Villar Psychiatrist Office #:: [phone] PHP/IOP Therapist:: Manfred Kemp Therapist Phone #:: [phone] - Medications Home Medications: Home Medications Lurasidone HCl [Latuda] 20 mg PO DINNER 12/29/18 Ergocalciferol (Vitamin D2) [Vitamin D2] 50,000 unit PO QWEEK 30 Days #4 cap 01/12/19 [place] [employer] Carbonate [[employer] Carbonate ER] 300 mg PO BID 30 Days #60 tablet.er 01/12/19 [employer] Carbonate [[employer] Carbonate ER] 450 mg PO QHS 30 Days #60 tablet.er 02/02/19 - Plan Details Progress/Aftercare Plan Details:: Pt has made significant progress in IOP. Pt attended the program consistenly and was an active particpant in group. Completed family session with his . Completed DSM-5 cross cutting scales prior to and at discharge which noted a 100% decrease in symptoms. At admission scored a 34 for overall symptoms. Scored 7 for depression scale. 4 for anger scale. 9 for anxiety scale. Currently these are all at 0 noting a 100% decrease in symptoms. Strategies for Success:: 1. Don't allow what other people do or say take up space inside you head 2. Be aware of anger warning signs and take action. 3. You don't have to help everyone take time for youself. 4. Self-care is very important for your mental health ... without self-care your battery will run low and you will be more depressed and angry. It was really great getting to know you and we all wish you the best of luck. - Appointments Appointments/Referrals to Other Services:: 02/04/19- Werner Foster- therapist; [facility]. 03/08/19- Neurologist. - Dr. Louie- psychiatrist; [facility]
--- NOTE | 2019-02-02 09:04 | BH.SGPN.GN ---
Behaviors/Verbalizations/Mental Status: []Client alert and oriented, neatly dressed and groomed. Eye contact good. Motor activity appropriate. Speech within normal limits. Affect congruent, mood euthymic. Thoughts linear, logical, no signs of hallucinations or delusions. Reviewed client?s symptom tracker, no risk for suicidal ideation, plan, or intent as of 02/02/19. Client Response/Progress/Benefit: []Client responded well to session, last day of IOP and reflecting on progress. Client reports feeling ?excited? today and was expressing feeling grateful for the people he met and the coping skills he learned in [facility] Client reflected on his progress and client reports belief he has improved with managing anger and anxiety. Client also stated his communication is better with his and ?small things don?t piss me off anymore.? Client reported he is going to miss the people in group as they helped him learn about himself and feel safe. Appeared to benefit from reflecting on gains. Will discharge from [facility] today as he reports reduced depression and improved emotional regulation. Client no longer meets criteria for [facility] level of care. Narrative Note: []
--- NOTE | 2019-02-02 09:11 | PCM.BH.PN ---
Progress Note Progress Note: History of Present Illness/Interim History: [] Patient is a 58-year-old male who is seen in follow-up at the [facility] program on February 02, 2019. I last saw him 3-1/2 weeks ago. At that time I increase his lithium to 900 mg p.o. nightly. Patient states that he is feeling much better. He feels that his mood is much more stable and is much less irritable. He feels that his mood is euthymic at this point for the last 5 or 6 days he has not felt depressed. He is able to control himself at work and at home and he is finding that his coworkers are not irritating him as much as they were before. He says that now I can not let them get to me. He feels his mood is much less reactive and much more stable. He has now been off the Zoloft about 5 weeks or more. He says that he is doing well at work and his feels he is doing much better also. He feels that he is learning valuable coping skills in the IOP program. His sleep now is at 6 to 8 hours a night which is a great improvement over his decreased sleep when he started the program. He denies any suicidal ideation, homicidal ideation, hallucinations or delusions. He denies any passive thoughts of . He is able to think better and faster than when he started the program. He denies any side effects on the lithium. Had his blood work drawn yesterday at [facility] and these results are pending. Current Psychiatric Medications: [[place] carbonate extended release 300 mg; he takes 3 or 900 mg p.o. nightly.] Mental Status Examination: [] Patient is casually dressed and groomed and appears normal for stated age. He has good hygiene. His eye contact is good and his speech is normal rate and rhythm with no pressure. His mood is euthymic. His affect is full and normal. He has no response latency anymore. His affect is full and normal. His thought process is goal-directed and organized. His thought content: No evidence of suicidal or homicidal ideation. No evidence of hallucinations or delusions. Concentration is normal. Judgment is intact. Insight: Some present. Impulsivity low. Diagnoses: [] [place] I: [] Bipolar disorder most recent episode mixed moderate (resolving). Rule out medication induced mixed episode. [place] II: [] Deferred [place] III: [] Possible mild cognitive disorder (referred to neurology at initial visit) [place] IV:[]] Primary support marital issues Plan: [] She will be discharged from the IOP program today. He feels he is learning valuable skills and he is doing quite well. He felt safe during the interview and if it any time he does not feel safe he will call his doctors or go to the emergency room. He understands the risks, complications, possible side effects of lithium and he understands and accepts these. He understands the need for routine regular blood draws on lithium to watch for kidney, thyroid or parathyroid dysfunction. We will request the lab results from [facility] that were done on January 31, 2019. Records will be sent to his future psychiatric provider who he sees on March 21, 2019. Refills were given on the lithium to get him to that appointment. [place] was refilled at lithium carbonate ER 450 mg; 2 p.o. nightly for a total daily dose of 900 mg. He will continue to follow-up with his counselor who he sees in a day or 2. He will also follow-up with his neurology consult which is on March 08, 2019. Also continue his vitamin D treatment for his low vitamin D.
--- NOTE | 2019-02-02 09:36 | BH.DS_ITS ---
Discharge Summary - Demographics Date of Admission:: 12/29/18 Discharge Date: 02/02/19 Presenting Problems at Admission:: Pt is a 58 year old male with hx of BETSEY. No previous psychiatric admissions. Referred to IOP by outpatient therapist due to significant mental health symptoms which she believed needed a higher level of care. Per and therapist pt has exhibited erratic mood swings, irritability, high energy, and depression for the past several months. notes that he will often spend all weekend isolating, is not completing ADLs, and is not completing household responsibilities. Pt endorses poor sleep, increased appetite, low energy, poor motivation, and no pleasure in activities. Notes that there are days in which pt will not sleep. Notes rapid cycling of moods throughout the day and week. Anger outbursts with no apparent trigger. reports concerns from pt's co-workers. Limited support. Estranged from son. Endorses constant worry. Denies HI or psychosis. Discharge Diagnoses:: Bipolar disorder most recent episode mixed moderate (resolving). Rule out medication induced mixed episode. Reason for Discharge:: No longer meets criteria for IOP level of care. - Treatment Progress During Treatment & Response: Pt has made significant progress in IOP. Pt attended the program consistenly and was an active particpant in group. Completed family session with his . Completed DSM-5 cross cutting scales prior to and at discharge which noted a 100% decrease in symptoms. At admission scored a 34 for overall symptoms. Scored 7 for depression scale. 4 for anger scale. 9 for anxiety scale. Currently these are all at 0 noting a 100% decrease in symptoms. Pt was inconsistent at times with homework assignments mainly due to poor memory. Issues Still to be Addressed:: anger mgmt, relationship conflict, increasing healthy coping skills, mood mgmt, and increase in social outlets. Discharge Recommendations/Instructions:: 02/04/19- Werner Foster- therapist; [facility]id[facility]uel. 03/08/19- Neurologist. - Dr. Louie- psychiatrist; [facility] Discharge Handout: Complete Discharge Handout with client on aftercare options and continuity of care.
--- NOTE | 2019-02-02 11:07 | BH.SGPN.GN ---
Behaviors/Verbalizations/Mental Status: [Client alert and oriented, casually dressed and groomed. Eye contact good. Motor activity appropriate. Speech within normal limits. Affect congruent and mood euthymic. Thoughts linear, logical, no signs of hallucinations or delusions.] Client Response/Progress/Benefit: [Client willing to participate in activity, provided input at during discussion, and listened attentively to peers. Client completed majority of worksheet identifying positive and negative forces impacting his life, however struggled with identifying negative forces impacting his life. Client identified positive forces that aid in progressing toward mental health goals include: calming skills, focusing on the positives, healthy communication, self-awareness. Client indicated not having any negative forces that are currently preventing progress. He continues to struggle with minimization at times regarding potential barriers to maintaining gains made. Client appeared to benefit from increased awareness of personal forces impacting mental health and wellness as well to importance of maintaining balance. Client to discharge from IOP program on this date and is encouraged to continue with outpatient counseling to maintain gains, continue to work on emotion regulation skills, and prevent decompensation.] Narrative Note: []
--- NOTE | 2019-02-02 12:32 | BH.COMM ---
Communication Note - Communication with Client Communication Note: Met with pt to review aftercare plan and DSM5 scales. Significant improvement noted on the DSM-5 scales. Refer to discharge summary. Notes significant mood improvement in the past week. Reports feeling more stable and in control of his thoughts and mood. Denies any anger outbursts. Tearful at times however this is due to leaving the IOP program.
--- NOTE | 2019-02-09 09:00 | PCM.BH.PN_ITS ---
Progress Note Progress Note: History of Present Illness/Interim History: [] Patient is a 58-year-old male with a history of being recently discharged from the IOP program at [facility] after being treated for a presumptive bipolar disorder most recent episode mixed, moderate (rule out medication induced mixed episode). The patient had presented after first using psychiatric meds in 2019 and presented with depression and decreased sleep with irritability. In addition the patient had been behaving out of character at work with some symptoms of possible disinhibition. His ability to give a history did not seem 100% reliable and he had a significant response latency in the initial visit. For this reason a referral to neurology was also ordered to rule out some sort of cognitive disorder. The patient responded to medication started and to the IOP program structure and therapy. Zoloft that he had been taking was discontinued at the [facility] program and he has been off that for over a month now. In addition lithium had been started at a relatively low dose and slowly increased to 900 mg p.o. at bedtime. He has been on the lithium 900 mg at bedtime since February 02, 2019. Patient had labs done on January 31 which showed a mildly increased creatinine of 1.34. The patient's baseline creatinine was 1.1. His GFR was also decreased to 54 on January 31, 2019. Labs were repeated in 1 week since the patient had had a good response to stopping the Zoloft and starting lithium. However the labs obtained February 07, 2019 showed his creatinine to continue to slowly rise and the creatinine had risen to 1.46 mg/dL. In addition his GFR decreased to 49 mL/min/m?. For this reason the lithium will now be weaned over a 1 week. And stopped. Since the patient has responded well to the medicine Depakote will be started to replace lithium but kept at a low dose unless a higher dose is needed. So the patient will get a CBC with differential and a liver panel today. If those labs are okay he will start valproic acid or Depakote ER 500 mg p.o. nightly. He will then get a complete metabolic panel in 1 week including renal and hepatic panels and a CBC with differential and a valproic acid level in the morning. He will obtain the the prior labs 1 week after his starting his Depakote. The patient will decrease his lithium to 600 mg p.o. at bedtime for 2 days and then 300 mg or 1 p.o. at bedtime for 2 days and then he will stop the lithium completely 5 days after starting the Depakote. The risks, possible complications and side effects of medications will be discussed with the patient. This includes the need to get off lithium due to the possibility of damage to his kidney. In addition the patient will be informed by our nurse of the risks to his liver from taking Depakote long-term and the possible risks to his blood indices such as decreased platelets etc. which could happen when one takes Depakote. Other side effects of Depakote will also be discussed with the patient including weight gain, possible pancreatitis, possible cognitive slowing and other common side effects. I will communicate with the patient's primary care doctor as needed until he sees his psychiatric provider. He has an appointment with a new psychiatric provider but it is not for about a month or so. If the patient tolerates the Depakote ER at 500 mg p.o. nightly the PCP could increase it by 250 mg weekly as needed if the patient decompensates. I will be available to speak to his PCP and records will be forwarded to the PCP and his new psychiatric provider. Diagnoses: [] [place] I: [] Bipolar disorder most recent episode mixed moderate (rule out medication induced bipolar 1 disorder mixed episode) [place] II: [] Deferred [place] III: [] Rule out cognitive disorder [place] IV:[]] Plan: [] The plan is as dictated above in the present illness.
== END 2019-02-02 13:00 | disposition home or self-care (01) ==
LOC: BHIOP 09:00
PROVIDERS: Referring Provider Psychiatry & Neurology Psychiatry; Visit Provider Psychiatry & Neurology Psychiatry
DX: F31.62 Bipolar disorder, current episode mixed, moderate (principal)
CPT/HCPCS: H0035; 90834; 90853